=== PATIENT | male | born 1955 | race Caucasian/White ===

== ENCOUNTER 2021-03-30 20:25 | Emergency (ER) | payer BC ==
[~2021-03-30] VITALS: Ht 180.3 cm; Wt 93.9 kg
[2021-03-30] MEDS ORDERED: ALLOPURINOL 30300 M1 PO (20:52)
[2021-03-30] MEDS ORDERED: LEVO-T100 MCG PO (20:53)
[2021-03-30] MEDS ORDERED: PROSCAR 5MG TABL5 M1 PO (20:53)
[2021-03-30] MEDS ORDERED: METFORMIN HCL500 M3 PO (20:54)
[2021-03-30] MEDS ORDERED: LISINOPRIL-HCT1 EACH PO (20:54)
[2021-03-30] MEDS ORDERED: GLIPIZIDE 10 MG10 MG PO (20:55)
[2021-03-30] MEDS ORDERED: ASA81BEC PO (20:55)
[2021-03-30] MEDS ORDERED: NORCO5 PO ×2 (21:50→21:58)
[2021-03-30] MEDS ORDERED: CIPROFLOXIN HC2.5 M1 OPHTHALMIC (21:50)
[2021-03-30 22:11] VITALS: BP 139/77
== END 2021-03-30 22:11 | disposition home or self-care (01) ==
LOC: M.ERS 20:25
DX: S05.52XA Penetrating wound with foreign body of left eyeball, initial encounter (principal); I10 Essential (primary) hypertension; E11.9 Type 2 diabetes mellitus without complications; Z79.899 Other long term (current) drug therapy; Z79.82 Long term (current) use of aspirin; X58.XXXA Exposure to other specified factors, initial encounter; Y93.89 Activity, other specified; Y92.89 Other specified places as the place of occurrence of the external cause; Y99.9 Unspecified external cause status